=== PATIENT | female | born 2000 | race Caucasian/White ===

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

== ENCOUNTER 2021-06-06 23:03 | Emergency (ER) | payer SELFPAY ==
[2021-06-06 23:11] VITALS: BP 138/85; PULSE 95; RESP 18; TEMP 37.3; O2SAT 99; BMI 44.4
[2021-06-06 23:28] VITALS: BP 143/91; PULSE 89; RESP 16; O2SAT 97
--- NOTE | 2021-06-06 23:50 | W.ED.ABDPA2 ---
HPI - Abdominal Pain General: Chief Complaint: Abdominal Pain Stated Complaint: back pain comes around left side Time Seen by Provider: 06/06/21 23:19 Source: patient Mode of arrival: ambulatory Limitations: no limitations History of Present Illness: HPI narrative: Patient is a 21-year-old female who presents to ED today with what she believes could be a kidney stone or kidney infection. Patient tells me several hours ago she began developing fairly abrupt onset of left flank pain. She actually describes pain to both flanks but states most of her discomfort is to the left. She does report pain radiates into her abdomen. She has felt nauseous and has had one episode of vomiting. Patient tells me she was seen here back in August (3 total visits) and diagnosed with a UTI/kidney infection. Documentation from those visits were reviewed and surprisingly not a single culture was obtained from either of the three urine specimens (too many squamous cells to trigger reflux culture and cath urines were never collected). CT imaging on one visit as well as US renal on subsequent visit never showed evidence of a pyelonephritis. Patient is not having fevers. She has noticed dark urine (although reports the urine sample given today was normal color) and does complain of some dysuria and urgency. MD elicited complaint: abdominal pain and flank pain Onset (ago): hour(s) Pain Consistency: constant Location: L flank Severity: moderate Quality: sharp Radiation: LUQ and LLQ Exacerbating factors: nothing Relieving factors: nothing Associated Symptoms: Reports dysuria, heartburn (chronic), nausea and vomiting (x1); Denies change in bowel habits, change in stool character, chills, fever(s) and hematemesis Related Data: Date of Last Menstrual Period: 05/25/21 Patient : No Review of Systems Const: Denies: fever(s), chills, body aches or fatigue Card: Denies: chest pain Resp: Denies: dyspnea GI: Reports: abdominal pain, nausea, vomiting (x1) and heartburn (chronic); Denies: hematemesis, change in bowel habits or change in stool character : Reports: flank pain, dysuria, urinary frequency and urinary urgency; Denies: vaginal odor or vaginal bleeding Musc: Reports: back pain (flank pain); Denies: neck pain, extremity pain or joint pain Skin/Breast: Denies: rash Neuro: Denies: headache(s) [facility] ED PFS: Medical History (Updated 06/07/21 @ 01:56 by ARLENE Roman) Chronic GERD Family History Denies family history of Anesthesia complication Bleeding disorder Social History Smoking and tobacco status: never smoked Alcohol intake: never Female Reproductive History: Date of last menstrual period: 05/25/21 Physical Exam Const: COMMON NORMALS: no acute distress, patient oriented x3, no limitations and alert GENERAL APPEARANCE: cooperative NUTRITIONAL APPEARANCE: obese morbidly obese ORIENTATION/CONSCIOUSNESS: Yes awake, Yes oriented to person, Yes oriented to place and Yes oriented to time HENMT: COMMON NORMALS: normocephalic and atraumatic HEAD & SCALP: normocephalic and atraumatic Resp: COMMON NORMALS: normal respiratory effort and clear to auscultation bilaterally AUSCULTATION: clear to auscultation bilaterally Cardio: COMMON NORMALS: regular rate and regular rhythm RATE: regular rate RHYTHM: regular rhythm GI: COMMON NORMALS: Soft to palpation INSPECTION: Yes normal to inspection AUSCULTATION: Yes normoactive bowel sounds PALPATION: Yes Soft to palpation, Yes Tenderness to palpation present (GI) (RUQ, LUQ, L abdomen, suprapubic), No Guarding due to palpation present (GI) and No Rigid due to palpation OTHER: exam limited secondary to body habitus : BLADDER/KIDNEY EXAM: Yes CVA tenderness Back/Pelvis: GENERAL BACK: Yes CVA tenderness CVA tenderness: bilateral (mild) Extremity: COMMON NORMALS: normal to inspection, no clubbing, cyanosis or edema, no calf tenderness and no pedal edema Neuro: COMMON NORMALS: patient oriented x3 SENSORIUM/ORIENTATION: Yes alert, Yes oriented to person, Yes oriented to place and Yes oriented to time Skin: COMMON NORMALS: no rashes or lesions noted GENERAL SKIN EXAM: no rashes or lesions noted Course Vital Signs: Vital signs: Vital Signs Temperature 99.2 F 06/06/21 23:11 Pulse Rate 89 06/06/21 23:28 Respiratory Rate 16 06/06/21 23:28 Blood Pressure 143/91 06/06/21 23:28 Pulse Oximetry 97 06/06/21 23:28 MDM - Abdominal Pain MDM Narrative: Medical decision making narrative: Patient with normal vital signs. Her labs are unremarkable. UA is not suspicious for infection. Patient seems very concerned regarding her pain and possible etiology. CT scan was obtained which does not show any abnormalities. Recommend primary care follow-up however patient does not have insurance. She was given manager financial planning paperwork for the hospital and encouraged to return this is soon as possible. Discussed possible conservative therapies at home including Tylenol/Ibuprofen and ice/heat for possible musculoskeletal etiology. Return to ED precautions given. Lab Data: Attestation: I reviewed the patient's lab results. Labs: Lab Results 06/06/21 06/06/21 06/06/21 23:48 23:48 23:48 WBC 11.0 10^3/uL 10^3 /uL (4.5-13.0) RBC 4.67 10^6/uL 10^6 /uL (4.1-5.3) Hgb 12.0 g/dL g/dL (11.5-15.3) Hct 38.8 % % (37.0-47.0) MCV 83.1 fl fl (81-99) MCH 25.7 pg L pg (28.0-34.0) MCHC 30.9 g/dL g/dL (30.0-36.0) RDW 13.8 % % (12.1-15.1) Plt Count 459 10^3/cmm H 10 ^3/cmm (130-400) MPV 9.1 fL fL (7.4-10.4) Neut % (Auto) 64.2 % % Lymph % (Auto) 27.2 % % Kemper % (Auto) 5.1 % % Eos % (Auto) 2.4 % % Baso % (Auto) 0.7 % % Neut # (Auto) 7.05 10^3/uL 10^3 /uL (1.8-8.0) Lymph # (Auto) 3.0 10^3/uL 10^3/ uL (1.5-6.5) Kemper # (Auto) 0.6 10^3/uL 10^3/ uL (0.2-0.9) Eos # (Auto) 0.3 10^3/uL 10^3/ uL (0.0-0.8) Baso # (Auto) 0.1 10^3/uL 10^3/ uL (0.0-0.1) Nucleated RBC % (a uto) 0 % % Nucleated RBCs # 0.0 /100WBC /100W BC Sodium 135 mmol/L L mmol /L (136-145) Potassium 3.7 mmol/L mmol/L (3.5-5.1) Chloride 101 mmol/L mmol/L (98-107) Carbon Dioxide 24 mmol/L mmol/L (22-29) Anion Gap 13.7 (5-19) BUN 3 mg/dL L mg/dL (6-20) Creatinine 0.4 mg/dL L mg/dL (0.5-0.9) GFR Calculation 203.5 mL/min H mL /min (90-130) Glucose 91 mg/dL mg/dL (65-115) Calculated Osmolal ity 276 mOsm/kg L mOs m/kg (285-295) Calcium 9.1 mg/dL mg/dL (8.5-10.5) Total Bilirubin 0.2 mg/dL mg/dL (0.15-1.2) AST 26 U/L U/L (0-32) ALT 34 U/L H U/L (0-33) Alkaline Phosphata se 73 IU/L IU/L (35-105) Total Protein 7.5 g/dL g/dL (6.6-8.7) Albumin 3.8 g/dL g/dL (3.5-5.2) Globulin 3.7 g/dL g/dL (1.3-4.6) Lipase HCG, Qual Negative (Negative) Urine Color Urine Appearance Urine pH Ur Specific Gravit y Urine Protein Urine Glucose (UA) Urine Ketones Urine Blood Urine Nitrate Urine Bilirubin Urine Urobilinogen Ur Leukocyte Amber ase 06/06/21 06/07/21 23:48 00:15 WBC RBC Hgb Hct MCV MCH MCHC RDW Plt Count MPV Neut % (Auto) Lymph % (Auto) Kemper % (Auto) Eos % (Auto) Baso % (Auto) Neut # (Auto) Lymph # (Auto) Kemper # (Auto) Eos # (Auto) Baso # (Auto) Nucleated RBC % (a uto) Nucleated RBCs # Sodium Potassium Chloride Carbon Dioxide Anion Gap BUN Creatinine GFR Calculation Glucose Calculated Osmolal ity Calcium Total Bilirubin AST ALT Alkaline Phosphata se Total Protein Albumin Globulin Lipase 14 U/L U/L (13-60) HCG, Qual Urine Color Yellow (Yellow) Urine Appearance Clear (CLEAR) Urine pH 5 (5-7) Ur Specific Gravit y 1.020 (1.005-1.030) Urine Protein Neg (Negative) Urine Glucose (UA) Norm (Normal) Urine Ketones Negative (Negative) Urine Blood Neg (Negative) Urine Nitrate Negative (Negative) Urine Bilirubin Neg (Negative) Urine Urobilinogen Norm mg/dL mg/dL (Negative) Ur Leukocyte Amber ase Negative (Negative) Imaging Data ^: CT Abd/Pel: Radiologist's impression: [id number] [id number] Scan ReportSigned Patient: Yeni Morgan #: [id number]: 2000Acct#:[id number]/Sex: 21 / FADM Date: 06/06/21Loc: ERRoom/Bed:Attending Dr: Ordering Provider/Ordering MD: Yeni Garcia Date of Service: 06/07/21 Procedure(s): CT abdomen pelvis w con* [id number] Accession Number(s): [id number] Report Number: [id number] PROCEDURE INFORMATION: Exam: CT Abdomen And Pelvis With Contrast Exam date and time: 06/07/2021 1:00 AM Age: 21 years old Clinical indication: Abdominal pain; Flank; Left; Additional info: L flank/abdominal pain TECHNIQUE: Imaging protocol: Computed tomography of the abdomen and pelvis with contrast. Radiation optimization: All CT scans at this facility use at least one of these dose optimization techniques: automated exposure control; mA and/or kV adjustment per patient size (includes targeted exams where dose is matched to clinical indication); or iterative reconstruction. Contrast material: OMNI 350; Contrast volume: 95 ml; Contrast route: INTRAVENOUS (IV); COMPARISON: CT abdomen pelvis w con* [id number] 09/25/2020 12:47 AM RADIATION DOSE METRICS: Total DLP (mGy-cm): 1928.3 FINDINGS: Lungs: The lung bases are clear. No effusion Liver: Normal. No mass. Gallbladder and bile ducts: No wall thickening, pericholecystic fluid or stones. Pancreas: Normal. No ductal dilation. Spleen: Normal. No splenomegaly. Adrenal glands: Normal. No mass. Kidneys and ureters: Normal. No hydronephrosis. Stomach and bowel: Unremarkable. No obstruction. No mucosal thickening. Appendix: No evidence of appendicitis. Intraperitoneal space: Unremarkable. No free air. No significant fluid collection. Vasculature: Unremarkable. No abdominal aortic aneurysm. Lymph nodes: Unremarkable. No enlarged lymph nodes. Urinary bladder: Unremarkable as visualized. Reproductive: Unremarkable as visualized. Bones/joints: Unremarkable. No acute fracture. Soft tissues: Unremarkable. CT/CT abdomen pelvis w con* [id number] IMPRESSION: No cause for acute pain is identified. Radiation Dose CTDIVOL = (mGy): DLP = 1928.3 (mGy-cm) Dictated By:Louis Thomas By:Louis Thomas Date/Time:06/07/21 0148DD/ Discharge Plan Discharge Patient Disposition: Home Clinical Impression: Abdominal wall pain in left flank Condition: Stable Prescriptions: No Action pantoprazole [Protonix] 40 mg tablet,delayed release (DR/EC) 40 mg PO QAM 30 Days Qty: 30 RF: 2 ondansetron 4 mg tablet,disintegrating 4 mg PO Q8H PRN (Reason: nausea and vomiting) Qty: 7 RF: 0 Discharge Orders: Discharge ED (Routine); Ordered 06/07/21 Ordered By: Yeni Garcia Patient Instructions: Abdominal Pain (ED) Coding Level of Care Code ED Greaser Helper for Chg Fwd Exam Comprehensive
[2021-06-06 23:52] LABS: Basophils # 0.1 10^3/uL (0.0-0.1); Basophils % 0.7 %; Eosinophils # 0.3 10^3/uL (0.0-0.8); Eosinophils % 2.4 %; Hematocrit 38.8 % (37.0-47.0); Lymphocytes % 27.2 %; Mean Corpuscular HGB Conc 30.9 g/dL (30.0-36.0); Mean Corpuscular Hemoglobin 25.7 pg (28.0-34.0); Mean Corpuscular Volume 83.1 fl (81-99); Mean Platelet Volume 9.1 fL (7.4-10.4); Monocytes # 0.6 10^3/uL (0.2-0.9); Monocytes % 5.1 %; Neutrophils # 7.05 10^3/uL (1.8-8.0); Neutrophils % 64.2 %; Nucleated Red Blood Cells % 0 %; Platelet Count 459 10^3/cmm (130-400); Red Blood Count 4.67 10^6/uL (4.1-5.3); Red Cell Distribution Width 13.8 % (12.1-15.1)
[2021-06-06] MEDS: sodium chloride 0.9% 1,000 ML 999 ML IV (23:58)
[2021-06-07 00:07] LABS: Alanine Aminotransferase 34 U/L (0-33); Albumin Level 3.8 g/dL (3.5-5.2); Alkaline Phosphatase 73 IU/L (35-105); Anion Gap 13.7 (5-19); Aspartate Amino Transferase 26 U/L (0-32); Blood Urea Nitrogen 3 mg/dL (6-20); Calcium 9.1 mg/dL (8.5-10.5); Carbon Dioxide 24 mmol/L (22-29); Chloride 101 mmol/L (98-107); Globulin 3.7 g/dL (1.3-4.6); Glomerular Filtration Rate 203.5 mL/min (90-130); Glucose 91 mg/dL (65-115); Osmolality Calculated 276 mOsm/kg (285-295); Potassium 3.7 mmol/L (3.5-5.1); Sodium 135 mmol/L (136-145); Total Bilirubin 0.2 mg/dL (0.15-1.2); Total Protein 7.5 g/dL (6.6-8.7)
[2021-06-07 00:15] LABS: HCG, Serum Qual Negative (Negative)
[2021-06-07 00:41] LABS: Add Urine Microscopic? NO; Charge for UA Resulting for Rev
[2021-06-07 00:52] LABS: Bilirubin Urine Neg (Negative); Blood Urine Neg (Negative); Glucose Urine UA Norm (Normal); Ketones Urine Negative (Negative); Leukocyte Esterase Urine Negative (Negative); Nitrate Urine Negative (Negative); Protein Urine Neg (Negative); Urine Appearance Clear (CLEAR); Urine Color Yellow (Yellow); Urobilinogen Urine Norm (Negative); pH Urine 5 (5-7)
--- NOTE | 2021-06-07 01:00 | CTR_ITS ---
PROCEDURE INFORMATION: Exam: CT Abdomen And Pelvis With Contrast Exam date and time: 06/07/2021 1:00 AM Age: 21 years old Clinical indication: Abdominal pain; Flank; Left; Additional info: L flank/abdominal pain TECHNIQUE: Imaging protocol: Computed tomography of the abdomen and pelvis with contrast. Radiation optimization: All CT scans at this facility use at least one of these dose optimization techniques: automated exposure control; mA and/or kV adjustment per patient size (includes targeted exams where dose is matched to clinical indication); or iterative reconstruction. Contrast material: OMNI 350; Contrast volume: 95 ml; Contrast route: INTRAVENOUS (IV); COMPARISON: CT abdomen pelvis w con* [id number] 09/25/2020 12:47 AM RADIATION DOSE METRICS: Total DLP (mGy-cm): 1928.3 FINDINGS: Lungs: The lung bases are clear. No effusion Liver: Normal. No mass. Gallbladder and bile ducts: No wall thickening, pericholecystic fluid or stones. Pancreas: Normal. No ductal dilation. Spleen: Normal. No splenomegaly. Adrenal glands: Normal. No mass. Kidneys and ureters: Normal. No hydronephrosis. Stomach and bowel: Unremarkable. No obstruction. No mucosal thickening. Appendix: No evidence of appendicitis. Intraperitoneal space: Unremarkable. No free air. No significant fluid collection. Vasculature: Unremarkable. No abdominal aortic aneurysm. Lymph nodes: Unremarkable. No enlarged lymph nodes. Urinary bladder: Unremarkable as visualized. Reproductive: Unremarkable as visualized. Bones/joints: Unremarkable. No acute fracture. Soft tissues: Unremarkable. CT/CT abdomen pelvis w con* [id number] IMPRESSION: No cause for acute pain is identified. Radiation Dose CTDIVOL = (mGy): DLP = 1928.3 (mGy-cm)
[2021-06-07 01:07] LABS: Lipase 14 U/L (13-60)
[2021-06-07] MEDS: iohexol 350 mg/mL 100 mL Btl IV (01:37)
[2021-06-07] MEDS: diphenhydrAMINE 50 mg/mL SDV 1mL 25 MG IVP (01:45)
[2021-06-07 02:12] VITALS: BP 137/82; PULSE 87; RESP 16; O2SAT 97
== END 2021-06-07 02:15 | disposition home or self-care (01) ==
PROVIDERS: Emergency Provider Physician Assistant
DX: R10.32 Left lower quadrant pain (principal); K21.9 Gastro-esophageal reflux disease without esophagitis
CPT/HCPCS: 74177; 80053; 81003; 83690; 84703; 85025; 96361; 96374; 99284; J1200; J7030; Q9967

== ENCOUNTER → 2021-07-29 00:01 | Outpatient (BNVA) | payer OTHER, SELFPAY | PROVIDERS: Visit Provider Nurse Practitioner Family | DX: Z20.822 Contact with and (suspected) exposure to COVID-19 (principal); Z71.6 Tobacco abuse counseling; J06.9 Acute upper respiratory infection, unspecified; F17.200 Nicotine dependence, unspecified, uncomplicated; E66.9 Obesity, unspecified | CPT/HCPCS: 87426; 87635 ==

== ENCOUNTER 2022-05-01 00:15 | Emergency (ER) | payer SELFPAY ==
[2022-05-01 00:21] VITALS: BP 138/83; PULSE 146; RESP 20; TEMP 36.4; O2SAT 100; BMI 43.8
--- NOTE | 2022-05-01 00:27 | PC.NURSE ---
unable to tolerate ekg
== END 2022-05-01 00:48 | disposition left against medical advice (07) ==
PROVIDERS: Emergency Provider Family Medicine
DX: Z53.21 Procedure and treatment not carried out due to patient leaving prior to being seen by health care provider (principal)